=== PATIENT | male | born 1955 | race Caucasian/White ===

== ENCOUNTER 2018-07-18 07:47 | Day surgery (SDC) | payer BC ==
[~2018-07-18] VITALS: Ht 177.8 cm; Wt 90.7 kg
[~2018-07-18 07:47] MED LIST: INSU100C14 SQ; LISI10TA7 PO; METF-446 PO; PARO-66 PO; ROSU20TA PO; SODIUM CHLORIDE 0.9% 1000ML 1,000 ML IV ONE
[2018-07-18 09:22] VITALS: BP 134/73
[2018-07-18] MEDS ORDERED: PROPOFOL 10 MG/ML 20ML VIAL IV ONE ×3 (11:46→12:12)
[2018-07-18 12:22] VITALS: BP 91/42
[2018-07-18 12:26] VITALS: BP 101/54
[2018-07-18 12:31] VITALS: BP 106/57
[2018-07-18 12:36] VITALS: BP 116/59
== END 2018-07-18 13:03 | disposition home or self-care (01) ==
LOC: DAH 07:47 → ENDO 07:47
PROVIDERS: ATTEND Internal Medicine Gastroenterology
DX: Z12.11 Encounter for screening for malignant neoplasm of colon (principal); K63.5 Polyp of colon; E11.9 Type 2 diabetes mellitus without complications; F41.9 Anxiety disorder, unspecified; F32.9 Major depressive disorder, single episode, unspecified; M19.90 Unspecified osteoarthritis, unspecified site; E78.2 Mixed hyperlipidemia; Z90.49 Acquired absence of other specified parts of digestive tract; Z79.899 Other long term (current) drug therapy; Z79.84 Long term (current) use of oral hypoglycemic drugs; Z79.4 Long term (current) use of insulin; Z68.30 Body mass index [BMI] 30.0-30.9, adult
CPT/HCPCS: 45380; 45385; 82948 ×2; A4606; J2704 ×3; J7030